=== PATIENT | female | born 1985 | race Caucasian/White ===

== ENCOUNTER 2017-01-19 13:30 | Observation (INO) | payer MEDICAID, SELFPAY ==
[2017-01-19 13:44] VITALS: BMI 23.2
[2017-01-19 13:50] VITALS: BP 123/72; PULSE 78; RESP 20; TEMP 36.6; O2SAT 98
--- NOTE | 2017-01-19 14:16 | NURSING ---
CINA ASSESSMENT COMPLETED. SEE CHART.
--- NOTE | 2017-01-19 14:16 | PCM.HP.STD ---
Problem List (1) Opioid abuse Status: Chronic (2) Opioid withdrawal Status: Acute (3) Cocaine abuse Status: Chronic (4) Tobacco dependence Status: Chronic (5) Marijuana abuse Status: Chronic History of Present Illness Date of Admission: 01/19/17 Chief Complaint: Heroin/cocaine withdrawal The patient is a 31 year old F who presented to [facility] through [facility] program due to IV heroin and cocaine inhalation use. She states she has been using heroin and cocaine consistently for the past 13 years. She last used IV heroin yesterday morning and smoked cocaine 2 days ago. She also admits to using marijuana on occasion. She is a current half pack per day smoker. Denies alcohol use. Denies other substance use. She completed a similar detox program about 1 year ago and states she had no outpatient follow-up and quickly relapsed. She states she has moved out of previous living environment where she was around other users. Currently lives with topher who she states is a non-user. She plans to use Vivitrol after discharge. She currently complains of abdominal cramping, tremors, generalized joint aching, nausea, fever/chills, palpitations and anxiety. Denies chest pain, shortness of breath. She states she has gone through detox in the past. Denies history of seizures. She denies any medical history. Denies current daily medication. 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 Alcohol: None Drugs: Cocaine, Heroin, Marijuana - *Family History Maternal History Items: - - Patient denies known maternal medical history. Paternal History Items: - - Patient denies known paternal medical history. Review of Systems Constitutional: Reports: Chills, Fever, Malaise HEENT: Reports: Head Aches Cardiovascular: Reports: Palpitations. Denies: Chest Pain Respiratory: Denies: Cough, Shortness of breath at rest, Sputum production Gastrointestinal: Reports: Nausea, - - Abdominal cramping Genitourinary: Denies: Dysuria Musculoskeletal: Reports: - - Generalized joint pain Neurological: Denies: Numbness, Tingling, Focal weakness Psychiatric: Denies: Anxiety, Depression, Homicidal Ideations, Suicidal Ideations Hematologic/ Lymphatic: Denies: Easy Bruising, Easy Bleeding VTE Information - Inpt Only VTE Present on Admission: No VTE Mechan Device Prophylaxis: None Patient Problems: Active and Suspected Problems Opioid withdrawal (Acute) - Physical Exam General: Alert, Oriented x3, Cooperative, No apparent distress HEENT: Atraumatic, PERRLA, EOMI, Normocephalic Neck: Supple, No JVD, Negative Carotid Bruits Lungs: Clear to auscultation, Normal air movement Cardiovascular: Regular rate, Regular Rhythm, Normal S1, Normal S2, No murmurs Abdomen: Bowel Sounds Present, Soft, Non-Distended, Tender - Generalized Extremities: No clubbing, No cyanosis, No edema, Capillary Refill Less than 3 Seconds Skin: No rashes, No breakdown, - - No skin abscesses noted. Patient has multiple scabbed areas to face. Musculoskeletal: No Tenderness to Palpation of Joints or Extremities Neurological: Cranial nerves II-XII grossly intact, Neuro grossly intact Psych/Mental Status: Flat Affect Vital Signs Temp Pulse Resp BP Pulse Ox 97.8 F 78 20 123/72 98 01/19/17 13:50 01/19/17 13:50 01/19/17 13:50 01/19/17 13:50 01/19/17 13:50 Oxygen Delivery Method Room Air Weight: 61.416 kg Body Mass Index (BMI) 23.2 Assessment/Plan Active and Suspected Problems Opioid withdrawal (Acute) 1. Multi-substance abuse/withdrawal-patient has a 13 year history of IV heroin, cocaine and marijuana use. Medical stabilization per protocol. She currently complains of abdominal cramping, tremors, generalized joint aching, nausea, fever/chills, palpitations and anxiety. Patient plans on receiving Vivitrol injections following discharge. She states she is not interested in inpatient treatment. She has failed similar detox programs in the past. 2. Tobacco dependence-encourage smoking cessation. Nicotine replacement patch. DVT prophylaxis: Not indicated due to low risk.
--- NOTE | 2017-01-19 14:30 | HP.PCM_ITS ---
Problem List (1) Opioid abuse Status: Chronic (2) Opioid withdrawal Status: Acute (3) Cocaine abuse Status: Chronic (4) Tobacco dependence Status: Chronic (5) Marijuana abuse Status: Chronic History of Present Illness Date of Admission: 01/19/17 Chief Complaint: Heroin/cocaine withdrawal The patient is a 31 year old F who presented to [facility] through [facility] program due to IV heroin and cocaine inhalation use. She states she has been using heroin and cocaine consistently for the past 13 years. She last used IV heroin yesterday morning and smoked cocaine 2 days ago. She also admits to using marijuana on occasion. She is a current half pack per day smoker. Denies alcohol use. Denies other substance use. She completed a similar detox program about 1 year ago and states she had no outpatient follow-up and quickly relapsed. She states she has moved out of previous living environment where she was around other users. Currently lives with topher who she states is a non-user. She plans to use Vivitrol after discharge. She currently complains of abdominal cramping, tremors, generalized joint aching, nausea, fever/chills, palpitations and anxiety. Denies chest pain , shortness of breath. She states she has gone through detox in the past. Denies history of seizures. She denies any medical history. Denies current daily medication. Past Medical History Past Medical History (Chronic Problems): Chronic Problems Cocaine abuse (Chronic) Marijuana abuse (Chronic) Opioid abuse (Chronic) Tobacco dependence (Chronic) Allergies No Known Allergies Allergy (Verified 01/19/17 13:50) Home Medications: Ambulatory Orders Medication Instructions Recorded No Known/Unobtainable [No Known 01/19/17 Home Medications] Surgical History: no surgical history Psychiatric History: No pertinent psych hx COOK RELIEF History: No pertinent COOK RELIEF history Smoking Status: Current every day smoker Tobacco Use: Cigarettes - Half pack per day. Alcohol: None Drugs: Cocaine, Heroin, Marijuana - *Family History Maternal History Items: - - Patient denies known maternal medical history. Paternal History Items: - - Patient denies known paternal medical history. Review of Systems Constitutional: Reports: Chills, Fever, Malaise HEENT: Reports: Head Aches Cardiovascular: Reports: Palpitations. Denies: Chest Pain Respiratory: Denies: Cough, Shortness of breath at rest, Sputum production Gastrointestinal: Reports: Nausea, - - Abdominal cramping Genitourinary: Denies: Dysuria Musculoskeletal: Reports: - - Generalized joint pain Neurological: Denies: Numbness, Tingling, Focal weakness Psychiatric: Denies: Anxiety, Depression, Homicidal Ideations, Suicidal Ideations Hematologic/ Lymphatic: Denies: Easy Bruising, Easy Bleeding VTE Information - Inpt Only VTE Present on Admission: No VTE Mechan Device Prophylaxis: None Patient Problems: Active and Suspected Problems Opioid withdrawal (Acute) - Physical Exam General: Alert, Oriented x3, Cooperative, No apparent distress HEENT: Atraumatic, PERRLA, EOMI, Normocephalic Neck: Supple, No JVD, Negative Carotid Bruits Lungs: Clear to auscultation, Normal air movement Cardiovascular: Regular rate, Regular Rhythm, Normal S1, Normal S2, No murmurs Abdomen: Bowel Sounds Present, Soft, Non-Distended, Tender - Generalized Extremities: No clubbing, No cyanosis, No edema, Capillary Refill Less than 3 Seconds Skin: No rashes, No breakdown, - - No skin abscesses noted. Patient has multiple scabbed areas to face. Musculoskeletal: No Tenderness to Palpation of Joints or Extremities Neurological: Cranial nerves II-XII grossly intact, Neuro grossly intact Psych/Mental Status: Flat Affect Vital Signs Temp Pulse Resp BP Pulse Ox 97.8 F 78 20 123/72 98 01/19/17 13:50 01/19/17 13:50 01/19/17 13:50 01/19/17 13:50 01/19/17 13:50 Oxygen Delivery Method Room Air Weight: 61.416 kg Body Mass Index (BMI) 23.2 Assessment/Plan Active and Suspected Problems Opioid withdrawal (Acute) 1. Multi-substance abuse/withdrawal-patient has a 13 year history of IV heroin , cocaine and marijuana use. Medical stabilization per protocol. She currently complains of abdominal cramping, tremors, generalized joint aching, nausea, fever/chills, palpitations and anxiety. Patient plans on receiving Vivitrol injections following discharge. She states she is not interested in inpatient treatment. She has failed similar detox programs in the past. 2. Tobacco dependence-encourage smoking cessation. Nicotine replacement patch. DVT prophylaxis: Not indicated due to low risk.
[2017-01-19] MEDS: Buprenorphine HCl 2 MG TAB.SUBL SL (15:54)
[2017-01-19] MEDS: cloNIDine HCl 0.1 MG Tablet 0.2 MG PO (15:55)
[2017-01-19] MEDS: Dicyclomine 10 MG Capsule 20 MG PO ×2 (15:55→22:37)
[2017-01-19] MEDS: Methocarbamol 750 MG Tablet PO (15:55)
[2017-01-19 18:09] VITALS: BP 84/39; PULSE 69; RESP 18; TEMP 36.7
[2017-01-19 22:00] VITALS: BP 107/65; PULSE 67; RESP 18; TEMP 36.4
[2017-01-19 22:20] VITALS: BP 107/65; PULSE 66; RESP 18; TEMP 35.6; O2SAT 97
[2017-01-19] MEDS: QUEtiapine 25 MG Tablet PO (22:36)
[2017-01-19] MEDS: cloNIDine HCl 0.1 MG Tablet PO (22:37)
[2017-01-19] MEDS: Carbidopa/Levodopa 25/100 Tablet PO (22:37)
[2017-01-20] VITALS (7 sets, daily range): BP systolic 93–106; BP diastolic 50–66; PULSE 58–86; RESP 16–18; TEMP 35.8–36.9; O2SAT 98–100
[2017-01-20] MEDS: Buprenorphine HCl 2 MG TAB.SUBL SL ×3 (01:10→15:17)
[2017-01-20] MEDS: Methocarbamol 750 MG Tablet PO ×4 (02:56→22:37)
[2017-01-20] MEDS: Dicyclomine 10 MG Capsule 20 MG PO ×3 (07:58→22:37)
[2017-01-20] MEDS: Carbidopa/Levodopa 25/100 Tablet PO ×2 (07:59→22:37)
[2017-01-20] MEDS: QUEtiapine 25 MG Tablet PO ×2 (07:59→15:17)
[2017-01-20 09:01] LABS: Absolute Lymphocyte Count 1.84 X10^3/ul (0.83-4.51); Absolute Neutrophil Count 3.3 X10^3/uL (2.0-7.7); Basophil# 0.02 X10^3/uL; Basophil% 0.4 % (0-1); Eosinophil# 0.14 X10^3/uL; Eosinophils% 2.5 % (0-5); Hematocrit 37.6 % (37-47); Hemoglobin 12.6 g/dl (12.0-15.0); Lymphocyte # 1.84 X10^3/ul (4.0); Mean Corp Hgb Conc 33.5 g/gl (32-36); Mean Corpuscular Hgb 29.1 pg (27.0-32.0); Mean Corpuscular Volume 86.8 fL (81-99); Mean Platelet Vol. 9.7 fl (6.2-12.0); Monocyte# 0.32 X10^3/uL; Monocyte% 5.7 % (0-10); Neutrophil # 3.25 X10^3/uL (2.7-7.7); Neutrophil % 58.2 % (47-70); Platelet Count 216 K/mm3 (150-450); RBC Distribution Width CV 14.1 % (11.6-14.6); Red Blood Count 4.33 M/mm3 (4.2-5.4); White Blood Count 5.6 K/mm3 (4.4-11.0)
[2017-01-20 09:02] LABS: POSITIVE COUNT NO; POSITIVE DIFFERENTIAL NO; POSITIVE MORPHOLOGY NO
[2017-01-20 09:06] LABS: Prothrombin Time (Protime)PT. 13.2 SECONDS (11.7-14.9)
[2017-01-20 09:15] LABS: ALB/GLOB Ratio 0.6 RATIO (0.9-2.4); AST(SGOT) 18 U/L (15-37); Alanine Aminotransfer ALT/SGPT 16 U/L (12-78); Alkaline Phosphatase 70 U/L (45-117); Amylase 25 U/L (25-115); Anion Gap 7 (5-15); BUN 8 mg/dL (7-18); BUN/Creat Ratio 12.9 RATIO (10-20); Chloride 109 mmol/L (98-107); Creatinine, Serum 0.62 mg/dL (0.55-1.02); EST Glomerular Filtration Rate 117 mL/min (>60); Est Glom Filt Rate - Afr Amer 142 mL/min (>60); Estimated Creatinine Clearance 111.45 ml/min; Globulin 5.1 g/dL (2.3-3.5); Glucose 107 mg/dL (70-110); Lipase 78 U/L (73-393); Potassium 3.5 mmol/L (3.5-5.1); Protein, Total 8.1 g/dL (6.4-8.2); Sodium Level 141 mmol/L (136-145)
[2017-01-20 09:21] LABS: Pregnancy, Serum, hCG Quali. NEGATIVE Negative (0-9 Nonpreg)
--- NOTE | 2017-01-20 09:28 | PCM.PROGNOTE ---
<Peace Vasquez - Last Filed: 01/20/17 09:42> Patient Problems: Active and Suspected Problems Opioid withdrawal (Acute) Subjective: Patient is a 31-year-old female admitted 01/19/2017 due to heroin/cocaine withdrawal. She has a past medical history of cocaine abuse, marijuana abuse, opioid abuse, and tobacco dependence. No other previous medical history noted. Patient seen and examined. She is awake and alert, sitting up in bed. She states she feels well. Denies further abdominal cramping, nausea, joint aching, fever/chills. She denies shortness of breath, chest pain. She has been able to eat and drink without difficulty. She denies further complaints at this time. - Physical Exam General: Alert, Oriented x3, Cooperative HEENT: Atraumatic, PERRLA, EOMI, Normocephalic Neck: Supple, No JVD, Negative Carotid Bruits Lungs: Clear to auscultation, Normal air movement Cardiovascular: Regular rate, No murmurs Abdomen: Bowel Sounds Present, Soft, Non Tender Extremities: No edema, Capillary Refill Less than 3 Seconds Skin: - - Multiple scabbed areas to face and bilateral arms. No signs of infection. Musculoskeletal: No Tenderness to Palpation of Joints or Extremities Neurological: Cranial nerves II-XII grossly intact Psych/Mental Status: Normal Affect, Appropriate Vital Signs Temp Pulse Resp BP Pulse Ox 96.8 F 58 16 106/58 98 01/20/17 07:57 01/20/17 08:06 01/20/17 07:57 01/20/17 07:57 01/20/17 06:30 Oxygen Delivery Method Room Air Weight: 61.416 kg Body Mass Index (BMI) 23.2 Laboratory Tests Past 24 Hrs 01/20/17 01/20/17 01/20/17 08:45 08:45 08:45 WBC 5.6 RBC 4.33 Hgb 12.6 Hct 37.6 MCV 86.8 MCH 29.1 MCHC 33.5 RDW 14.1 RDW Differential 44.0 H Plt Count 216 MPV 9.7 Immature Gran % (Auto) 0.200 Neut % (Auto) 58.2 Lymph % (Auto) 33.0 [place] % (Auto) 5.7 Eos % (Auto) 2.5 Baso % (Auto) 0.4 Absolute Neuts (auto) 3.3 Absolute Lymphs (auto) 1.84 Total Counted Not Reportable PT 13.2 INR 1.0 Sodium 141 Potassium 3.5 Chloride 109 H Carbon Dioxide 25.0 Anion Gap 7 BUN 8 Creatinine 0.62 Estim Creat Clear Calc 111.45 Est GFR (MDRD) Af Amer 142 Est GFR (MDRD) Non-Af 117 BUN/Creatinine Ratio 12.9 Glucose 107 Calcium 9.0 Total Bilirubin 0.40 AST 18 ALT 16 Alkaline Phosphatase 70 Total Protein 8.1 Albumin 3.0 L Globulin 5.1 H Albumin/Globulin Ratio 0.6 L Amylase 25 Lipase 78 Serum , Qual 01/20/17 08:45 WBC RBC Hgb Hct MCV MCH MCHC RDW RDW Differential Plt Count MPV Immature Gran % (Auto) Neut % (Auto) Lymph % (Auto) [place] % (Auto) Eos % (Auto) Baso % (Auto) Absolute Neuts (auto) Absolute Lymphs (auto) Total Counted PT INR Sodium Potassium Chloride Carbon Dioxide Anion Gap BUN Creatinine Estim Creat Clear Calc Est GFR (MDRD) Af Amer Est GFR (MDRD) Non-Af BUN/Creatinine Ratio Glucose Calcium Total Bilirubin AST ALT Alkaline Phosphatase Total Protein Albumin Globulin Albumin/Globulin Ratio Amylase Lipase Serum , Qual NEGATIVE Assessment/Plan Active and Suspected Problems Opioid withdrawal (Acute) 1. Multi-substance abuse/withdrawal-patient has a 13 year history of IV heroin, cocaine and marijuana use. Medical stabilization per protocol. She denies further withdrawal symptoms at this time. States she is feeling well. Vitals stable. Patient plans on receiving Vivitrol injections following discharge. She states she is not interested in inpatient treatment. She has failed similar detox programs in the past. Lab work unremarkable. Urine tox screen pending. 2. Tobacco dependence-encourage smoking cessation. Nicotine replacement patch. DVT prophylaxis: Not indicated due to low risk. <Maru Cancino E - Last Filed: 01/20/17 12:48> - Physical Exam Cardiovascular: Regular Rhythm, Normal S1, Normal S2 Abdomen: Non-Distended, No Hepato-splenomegaly Extremities: No clubbing, No cyanosis Neurological: Motor Exam 5/5 strength throughout Vital Signs Temp Pulse Resp BP Pulse Ox 96.8 F 58 16 106/58 98 01/20/17 07:57 01/20/17 08:06 01/20/17 07:57 01/20/17 07:57 01/20/17 06:30 Oxygen Delivery Method Room Air Weight: 135 lb 5.821 oz Body Mass Index (BMI) 23.2 Laboratory Tests Past 24 Hrs 01/20/17 01/20/17 01/20/17 08:45 08:45 08:45 WBC 5.6 RBC 4.33 Hgb 12.6 Hct 37.6 MCV 86.8 MCH 29.1 MCHC 33.5 RDW 14.1 RDW Differential 44.0 H Plt Count 216 MPV 9.7 Immature Gran % (Auto) 0.200 Neut % (Auto) 58.2 Lymph % (Auto) 33.0 [place] % (Auto) 5.7 Eos % (Auto) 2.5 Baso % (Auto) 0.4 Absolute Neuts (auto) 3.3 Absolute Lymphs (auto) 1.84 Total Counted Not Reportable PT 13.2 INR 1.0 Sodium 141 Potassium 3.5 Chloride 109 H Carbon Dioxide 25.0 Anion Gap 7 BUN 8 Creatinine 0.62 Estim Creat Clear Calc 111.45 Est GFR (MDRD) Af Amer 142 Est GFR (MDRD) Non-Af 117 BUN/Creatinine Ratio 12.9 Glucose 107 Calcium 9.0 Total Bilirubin 0.40 AST 18 ALT 16 Alkaline Phosphatase 70 Total Protein 8.1 Albumin 3.0 L Globulin 5.1 H Albumin/Globulin Ratio 0.6 L Amylase 25 Lipase 78 Serum , Qual 01/20/17 08:45 WBC RBC Hgb Hct MCV MCH MCHC RDW RDW Differential Plt Count MPV Immature Gran % (Auto) Neut % (Auto) Lymph % (Auto) [place] % (Auto) Eos % (Auto) Baso % (Auto) Absolute Neuts (auto) Absolute Lymphs (auto) Total Counted PT INR Sodium Potassium Chloride Carbon Dioxide Anion Gap BUN Creatinine Estim Creat Clear Calc Est GFR (MDRD) Af Amer Est GFR (MDRD) Non-Af BUN/Creatinine Ratio Glucose Calcium Total Bilirubin AST ALT Alkaline Phosphatase Total Protein Albumin Globulin Albumin/Globulin Ratio Amylase Lipase Serum , Qual NEGATIVE Assessment/Plan Hospitalist note: I am seeing this patient in conjunction with Peace Vasquez. I independently seen and examined the patient. History and physical, progress note and laboratory data reviewed. I agree with above treatment plan. Today, patient seen and examined. She reported significant improvement of her symptoms. She has no more abdominal pain, still having some nausea but no vomiting. Body aches and pains improved. Vital signs are stable. - Physical Exam General: Alert, Oriented x3, Cooperative, No apparent distress. HEENT: Atraumatic, PERRLA, EOMI. Neck: Supple, No JVD, Negative Carotid Bruits, Trachea Midline, Thyroid Normal. Lungs: Clear to auscultation, Normal air movement, No rhonchi, No wheeze, No rales. Cardiovascular: Regular rate, Regular Rhythm, Normal S1, Normal S2, PMI Normal. Abdomen: Bowel Sounds Present, Soft, Non Tender, Non-Distended, No Hepato-splenomegaly. Extremities: No clubbing, No cyanosis, No edema Skin: No rashes, No breakdown Neurological: Neuro grossly intact Vital Signs stable. Assessment and plan: Patient was admitted for medical stabilization for opioid withdrawal in context of history of multi-substance abuse. She is on [facility] protocol with tapering course of Subutex. Vital signs are stable. Routine blood work was unremarkable. LFT and lipase were normal. Serum 's was negative. Plan to continue current treatment as per protocol.
--- NOTE | 2017-01-20 09:41 | PN_ITS ---
<Peace Vasquez - Last Filed: 01/20/17 09:42> Patient Problems: Active and Suspected Problems Opioid withdrawal (Acute) Subjective: Patient is a 31-year-old female admitted 01/19/2017 due to heroin/cocaine withdrawal. She has a past medical history of cocaine abuse, marijuana abuse, opioid abuse, and tobacco dependence. No other previous medical history noted. Patient seen and examined. She is awake and alert, sitting up in bed. She states she feels well. Denies further abdominal cramping, nausea, joint aching , fever/chills. She denies shortness of breath, chest pain. She has been able to eat and drink without difficulty. She denies further complaints at this time. - Physical Exam General: Alert, Oriented x3, Cooperative HEENT: Atraumatic, PERRLA, EOMI, Normocephalic Neck: Supple, No JVD, Negative Carotid Bruits Lungs: Clear to auscultation, Normal air movement Cardiovascular: Regular rate, No murmurs Abdomen: Bowel Sounds Present, Soft, Non Tender Extremities: No edema, Capillary Refill Less than 3 Seconds Skin: - - Multiple scabbed areas to face and bilateral arms. No signs of infection. Musculoskeletal: No Tenderness to Palpation of Joints or Extremities Neurological: Cranial nerves II-XII grossly intact Psych/Mental Status: Normal Affect, Appropriate Vital Signs Temp Pulse Resp BP Pulse Ox 96.8 F 58 16 106/58 98 01/20/17 07:57 01/20/17 08:06 01/20/17 07:57 01/20/17 07:57 01/20/17 06:30 Oxygen Delivery Method Room Air Weight: 61.416 kg Body Mass Index (BMI) 23.2 Laboratory Tests Past 24 Hrs 01/20/17 01/20/17 01/20/17 08:45 08:45 08:45 WBC 5.6 RBC 4.33 Hgb 12.6 Hct 37.6 MCV 86.8 MCH 29.1 MCHC 33.5 RDW 14.1 RDW Differential 44.0 H Plt Count 216 MPV 9.7 Immature Gran % (Auto) 0.200 Neut % (Auto) 58.2 Lymph % (Auto) 33.0 [place] % (Auto) 5.7 Eos % (Auto) 2.5 Baso % (Auto) 0.4 Absolute Neuts (auto) 3.3 Absolute Lymphs (auto) 1.84 Total Counted Not Reportable PT 13.2 INR 1.0 Sodium 141 Potassium 3.5 Chloride 109 H Carbon Dioxide 25.0 Anion Gap 7 BUN 8 Creatinine 0.62 Estim Creat Clear Calc 111.45 Est GFR (MDRD) Af Amer 142 Est GFR (MDRD) Non-Af 117 BUN/Creatinine Ratio 12.9 Glucose 107 Calcium 9.0 Total Bilirubin 0.40 AST 18 ALT 16 Alkaline Phosphatase 70 Total Protein 8.1 Albumin 3.0 L Globulin 5.1 H Albumin/Globulin Ratio 0.6 L Amylase 25 Lipase 78 Serum , Qual 01/20/17 08:45 WBC RBC Hgb Hct MCV MCH MCHC RDW RDW Differential Plt Count MPV Immature Gran % (Auto) Neut % (Auto) Lymph % (Auto) [place] % (Auto) Eos % (Auto) Baso % (Auto) Absolute Neuts (auto) Absolute Lymphs (auto) Total Counted PT INR Sodium Potassium Chloride Carbon Dioxide Anion Gap BUN Creatinine Estim Creat Clear Calc Est GFR (MDRD) Af Amer Est GFR (MDRD) Non-Af BUN/Creatinine Ratio Glucose Calcium Total Bilirubin AST ALT Alkaline Phosphatase Total Protein Albumin Globulin Albumin/Globulin Ratio Amylase Lipase Serum , Qual NEGATIVE Assessment/Plan Active and Suspected Problems Opioid withdrawal (Acute) 1. Multi-substance abuse/withdrawal-patient has a 13 year history of IV heroin , cocaine and marijuana use. Medical stabilization per protocol. She denies further withdrawal symptoms at this time. States she is feeling well. Vitals stable. Patient plans on receiving Vivitrol injections following discharge. She states she is not interested in inpatient treatment. She has failed similar detox programs in the past. Lab work unremarkable. Urine tox screen pending. 2. Tobacco dependence-encourage smoking cessation. Nicotine replacement patch. DVT prophylaxis: Not indicated due to low risk. <Maru Cancino E - Last Filed: 01/20/17 12:48> - Physical Exam Cardiovascular: Regular Rhythm, Normal S1, Normal S2 Abdomen: Non-Distended, No Hepato-splenomegaly Extremities: No clubbing, No cyanosis Neurological: Motor Exam 5/5 strength throughout Vital Signs Temp Pulse Resp BP Pulse Ox 96.8 F 58 16 106/58 98 01/20/17 07:57 01/20/17 08:06 01/20/17 07:57 01/20/17 07:57 01/20/17 06:30 Oxygen Delivery Method Room Air Weight: 135 lb 5.821 oz Body Mass Index (BMI) 23.2 Laboratory Tests Past 24 Hrs 01/20/17 01/20/17 01/20/17 08:45 08:45 08:45 WBC 5.6 RBC 4.33 Hgb 12.6 Hct 37.6 MCV 86.8 MCH 29.1 MCHC 33.5 RDW 14.1 RDW Differential 44.0 H Plt Count 216 MPV 9.7 Immature Gran % (Auto) 0.200 Neut % (Auto) 58.2 Lymph % (Auto) 33.0 [place] % (Auto) 5.7 Eos % (Auto) 2.5 Baso % (Auto) 0.4 Absolute Neuts (auto) 3.3 Absolute Lymphs (auto) 1.84 Total Counted Not Reportable PT 13.2 INR 1.0 Sodium 141 Potassium 3.5 Chloride 109 H Carbon Dioxide 25.0 Anion Gap 7 BUN 8 Creatinine 0.62 Estim Creat Clear Calc 111.45 Est GFR (MDRD) Af Amer 142 Est GFR (MDRD) Non-Af 117 BUN/Creatinine Ratio 12.9 Glucose 107 Calcium 9.0 Total Bilirubin 0.40 AST 18 ALT 16 Alkaline Phosphatase 70 Total Protein 8.1 Albumin 3.0 L Globulin 5.1 H Albumin/Globulin Ratio 0.6 L Amylase 25 Lipase 78 Serum , Qual 01/20/17 08:45 WBC RBC Hgb Hct MCV MCH MCHC RDW RDW Differential Plt Count MPV Immature Gran % (Auto) Neut % (Auto) Lymph % (Auto) [place] % (Auto) Eos % (Auto) Baso % (Auto) Absolute Neuts (auto) Absolute Lymphs (auto) Total Counted PT INR Sodium Potassium Chloride Carbon Dioxide Anion Gap BUN Creatinine Estim Creat Clear Calc Est GFR (MDRD) Af Amer Est GFR (MDRD) Non-Af BUN/Creatinine Ratio Glucose Calcium Total Bilirubin AST ALT Alkaline Phosphatase Total Protein Albumin Globulin Albumin/Globulin Ratio Amylase Lipase Serum , Qual NEGATIVE Assessment/Plan Hospitalist note: I am seeing this patient in conjunction with Peace Vasquez. I independently seen and examined the patient. History and physical, progress note and laboratory data reviewed. I agree with above treatment plan. Today, patient seen and examined. She reported significant improvement of her symptoms. She has no more abdominal pain, still having some nausea but no vomiting. Body aches and pains improved. Vital signs are stable. - Physical Exam General: Alert, Oriented x3, Cooperative, No apparent distress. HEENT: Atraumatic, PERRLA, EOMI. Neck: Supple, No JVD, Negative Carotid Bruits, Trachea Midline, Thyroid Normal. Lungs: Clear to auscultation, Normal air movement, No rhonchi, No wheeze, No rales. Cardiovascular: Regular rate, Regular Rhythm, Normal S1, Normal S2, PMI Normal. Abdomen: Bowel Sounds Present, Soft, Non Tender, Non-Distended, No Hepato- splenomegaly. Extremities: No clubbing, No cyanosis, No edema Skin: No rashes, No breakdown Neurological: Neuro grossly intact Vital Signs stable. Assessment and plan: Patient was admitted for medical stabilization for opioid withdrawal in context of history of multi-substance abuse. She is on [facility] protocol with tapering course of Subutex. Vital signs are stable. Routine blood work was unremarkable. LFT and lipase were normal. Serum 's was negative. Plan to continue current treatment as per protocol.
[2017-01-20] MEDS: chlordiazePOXIDE 25 MG Capsule PO ×2 (12:59→22:37)
[2017-01-20 15:31] LABS: Bacteria 0 SEEN /hpf (None Seen); Red Blood Cells-Urine 0 SEEN /hpf (0-5)
[2017-01-20 16:05] LABS: Amphetamine Urine VISTA NEGATIVE (<1000 ng/mL); Barbiturate Urine VISTA NEGATIVE (< 200 ng/mL); Benzodiazepine Urine VISTA NEGATIVE (< 200 ng/mL); Cocaine Urine VISTA POSITIVE (< 300 ng/mL); Ecstacy Urine VISTA NEGATIVE (< 500 ng/mL); Methadone Urine VISTA NEGATIVE (< 300 ng/mL); PCP Urine VISTA NEGATIVE (< 25 ng/mL); THC Urine VISTA POSITIVE (< 50 ng/mL); Vista UDS pH Range 7
[2017-01-20 16:07] LABS: Color, Urine Yellow (Yellow); Glucose, Dipstick Normal (Normal); Ketone-Dipstick 5 mg/dl (Negative); Leukocyte Esterase-Dipstick 25 /ul (Negative); Nitrite-Dipstick Negative (Negative); Occult Blood-Urine Negative /ul (Negative); Protein-Dipstick 30 mg/dl (Negative); Urine Bilirubin Dipstick Negative (Negative); Urine Clarity Clear (Clear); Urine Urobilinogen 4 mg/dl (Normal)
--- NOTE | 2017-01-20 16:10 | CHAPLAIN ---
patient ended phone call to talk to me; pt at first thought I was a doctor and asked about swelling in her hands; pt is asked about her story and she gives quick summary of her life as addict due to being a coping mechanism for what happened to me; pt said she was clean for 4 months and then reacted to something her mother said to her and started using again; pt overdosed and was found by boyfriend who did not know she was using again; pt has children that live with her parents but which she sees almost daily; pt has many spiritual questions and shares her background from a strict protestant and possibly cultic environment; pt says she believes in God but rejects the anabaptism of her parents; pt wants to find answers to her questions; listening and providing some insights for pt takes place [facility] staff member comes into room and gives updates on the next steps for pt; pt welcomes prayer and future visits
[2017-01-20 16:25] LABS: Mucous, Urine 4+ /hpf (<or=2+); Squamous Epithelial Cells - UA 0-5 SEEN /hpf (5-10); White Blood Cells 0-5 SEEN /hpf (0-5)
[2017-01-20] MEDS: cloNIDine HCl 0.1 MG Tablet PO (22:37)
[2017-01-21] MEDS: Buprenorphine HCl 2 MG TAB.SUBL SL ×3 (00:36→21:27)
[2017-01-21 06:00] VITALS: BP 89/56; PULSE 64; RESP 16; TEMP 36.4
[2017-01-21] MEDS: Methocarbamol 750 MG Tablet PO ×3 (08:04→21:46)
[2017-01-21] MEDS: Dicyclomine 10 MG Capsule 20 MG PO ×2 (08:04→21:46)
[2017-01-21] MEDS: Carbidopa/Levodopa 25/100 Tablet PO ×2 (08:04→21:46)
[2017-01-21 08:07] VITALS: BP 96/60; PULSE 62; RESP 18; TEMP 36.6
--- NOTE | 2017-01-21 09:11 | PN_ITS ---
<Peace Vasquez - Last Filed: 01/21/17 09:11> Patient Problems: Active and Suspected Problems Opioid withdrawal (Acute) Subjective: Patient is a 31-year-old female admitted 01/19/2017 due to heroin/cocaine withdrawal. She has a past medical history of cocaine abuse, marijuana abuse, opioid abuse, and tobacco dependence. No other previous medical history noted. Patient seen and examined. She is calm and pleasant. States she is feeling well. Denies further abdominal cramping, nausea, joint aching, fever/chills. She denies shortness of breath, chest pain. She denies questions or concerns. Discussed discharge tomorrow and patient states she set up Vivitrol injections. Denies further complaints at this time. - Physical Exam General: Alert, Oriented x3, Cooperative HEENT: Atraumatic, PERRLA, EOMI, Normocephalic Neck: Supple, No JVD, Negative Carotid Bruits Lungs: Clear to auscultation, Normal air movement Cardiovascular: Regular rate, Regular Rhythm, Normal S1, Normal S2, No murmurs Abdomen: Bowel Sounds Present, Soft, Non Tender, Non-Distended Extremities: No clubbing, No cyanosis, No edema, Capillary Refill Less than 3 Seconds Skin: No rashes, No breakdown, - - Scattered scabbed areas on face and bilateral arms. No signs of infection. Musculoskeletal: No Tenderness to Palpation of Joints or Extremities Neurological: Cranial nerves II-XII grossly intact, Neuro grossly intact Psych/Mental Status: Normal Affect, Appropriate Vital Signs Temp Pulse Resp BP Pulse Ox 97.8 F 62 18 96/60 98 01/21/17 08:07 01/21/17 08:07 01/21/17 08:07 01/21/17 08:07 01/20/17 06:30 Oxygen Delivery Method Room Air Weight: 61.4 kg Body Mass Index (BMI) 23.2 Intake and Output for Last 24 Hours 01/19/17 01/20/17 01/21/17 23:59 23:59 23:59 Intake Total 300 Balance 300 Laboratory Tests Past 24 Hrs 01/20/17 01/20/17 01/20/17 08:45 08:45 08:45 PT 13.2 INR 1.0 Sodium 141 Potassium 3.5 Chloride 109 H Carbon Dioxide 25.0 Anion Gap 7 BUN 8 Creatinine 0.62 Estim Creat Clear Calc 111.45 Est GFR (MDRD) Af Amer 142 Est GFR (MDRD) Non-Af 117 BUN/Creatinine Ratio 12.9 Glucose 107 Calcium 9.0 Total Bilirubin 0.40 AST 18 ALT 16 Alkaline Phosphatase 70 Total Protein 8.1 Albumin 3.0 L Globulin 5.1 H Albumin/Globulin Ratio 0.6 L Amylase 25 Lipase 78 Serum , Qual NEGATIVE Urine Color Urine Clarity Urine pH Ur Specific [place] Urine Protein Urine Glucose (UA) Urine Ketones Urine Occult Blood Urine Nitrite Urine Bilirubin Urine Urobilinogen Ur Leukocyte Esterase Urine RBC Urine WBC Ur Squamous Epith Cells Urine Bacteria Urine Mucus Urine Opiates Screen Urine Methadone Screen Ur Barbiturates Screen Ur Phencyclidine Scrn Ur Amphetamines Screen U Methamphetamin-MDMA U Benzodiazepines Scrn Urine Cocaine Screen U Cannabinoids Screen Ur Drug Screen Comment 01/20/17 01/20/17 15:20 15:20 PT INR Sodium Potassium Chloride Carbon Dioxide Anion Gap BUN Creatinine Estim Creat Clear Calc Est GFR (MDRD) Af Amer Est GFR (MDRD) Non-Af BUN/Creatinine Ratio Glucose Calcium Total Bilirubin AST ALT Alkaline Phosphatase Total Protein Albumin Globulin Albumin/Globulin Ratio Amylase Lipase Serum , Qual Urine Color Yellow Urine Clarity Clear Urine pH 7.0 Ur Specific [place] 1.010 Urine Protein 30 H Urine Glucose (UA) Normal Urine Ketones 5 H Urine Occult Blood Negative Urine Nitrite Negative Urine Bilirubin Negative Urine Urobilinogen 4 H Ur Leukocyte Esterase 25 H Urine RBC 0 SEEN Urine WBC 0-5 SEEN Ur Squamous Epith Cells 0-5 SEEN Urine Bacteria 0 SEEN Urine Mucus 4+ Urine Opiates Screen POSITIVE H Urine Methadone Screen NEGATIVE Ur Barbiturates Screen NEGATIVE Ur Phencyclidine Scrn NEGATIVE Ur Amphetamines Screen NEGATIVE U Methamphetamin-MDMA NEGATIVE U Benzodiazepines Scrn NEGATIVE Urine Cocaine Screen POSITIVE H U Cannabinoids Screen POSITIVE H Ur Drug Screen Comment Assessment/Plan Active and Suspected Problems Opioid withdrawal (Acute) 1. Multi-substance abuse/withdrawal-patient has a 13 year history of IV heroin , cocaine and marijuana use. Medical stabilization per protocol. She denies further withdrawal symptoms at this time. States she is feeling well. Vitals stable. Patient plans on receiving Vivitrol injections following discharge. She states she is not interested in inpatient treatment. She has failed similar detox programs in the past. Lab work unremarkable. Urine tox screen positive for opiates, cocaine, and cannabinoids. 2. Tobacco dependence-encourage smoking cessation. Nicotine replacement patch. DVT prophylaxis: Not indicated due to low risk. Discharge planning: Plan is for patient to be discharged tomorrow. She states she has already set up Vivitrol injection. <Maru Cancino E - Last Filed: 01/21/17 11:04> - Physical Exam Vital Signs Temp Pulse Resp BP Pulse Ox 97.8 F 62 18 96/60 98 01/21/17 08:07 01/21/17 08:07 01/21/17 08:07 01/21/17 08:07 01/20/17 06:30 Oxygen Delivery Method Room Air Weight: 135 lb 5.821 oz Body Mass Index (BMI) 23.2 Intake and Output for Last 24 Hours 01/19/17 01/20/17 01/21/17 23:59 23:59 23:59 Intake Total 300 Balance 300 Laboratory Tests Past 24 Hrs 01/20/17 01/20/17 15:20 15:20 Urine Color Yellow Urine Clarity Clear Urine pH 7.0 Ur Specific [place] 1.010 Urine Protein 30 H Urine Glucose (UA) Normal Urine Ketones 5 H Urine Occult Blood Negative Urine Nitrite Negative Urine Bilirubin Negative Urine Urobilinogen 4 H Ur Leukocyte Esterase 25 H Urine RBC 0 SEEN Urine WBC 0-5 SEEN Ur Squamous Epith Cells 0-5 SEEN Urine Bacteria 0 SEEN Urine Mucus 4+ Urine Opiates Screen POSITIVE H Urine Methadone Screen NEGATIVE Ur Barbiturates Screen NEGATIVE Ur Phencyclidine Scrn NEGATIVE Ur Amphetamines Screen NEGATIVE U Methamphetamin-MDMA NEGATIVE U Benzodiazepines Scrn NEGATIVE Urine Cocaine Screen POSITIVE H U Cannabinoids Screen POSITIVE H Ur Drug Screen Comment Assessment/Plan Hospitalist note: I am seeing this patient in conjunction with Peace Vasquez. I independently seen and examined the patient. Progress note above reviewed and I agree with above treatment plan. Patient seen and examined, reported significant improvement of her symptoms. Vital signs are stable. Plan to continue same treatment, anticipate discharge home tomorrow and follow-up with [facility]. ,
[2017-01-21 13:20] VITALS: BP 106/61; PULSE 67; RESP 18; TEMP 36.3
[2017-01-21] MEDS: Naproxen 250 MG Tablet 500 MG PO (13:25)
[2017-01-21] MEDS: QUEtiapine 25 MG Tablet PO (13:25)
[2017-01-21] MEDS: Miconazole-7 Nitrate Cream 1 APPLIC VAGINAL (21:45)
[2017-01-21] MEDS: chlordiazePOXIDE 25 MG Capsule PO (21:46)
[2017-01-21] MEDS: cloNIDine HCl 0.1 MG Tablet PO (21:46)
[2017-01-21 22:00] VITALS: BP 111/76; PULSE 73; RESP 16; TEMP 36.8
[2017-01-22 06:00] VITALS: BP 104/69; PULSE 62; RESP 18; TEMP 36.3
[2017-01-22] MEDS: chlordiazePOXIDE 25 MG Capsule PO (06:11)
--- NOTE | 2017-01-22 08:55 | NURSING ---
PT. REQUESTS TAKING 8 AM MEDICATION AFTER SHE EATS HER BREAKFAST.
--- NOTE | 2017-01-22 09:06 | PCM.DC ---
- Discharge Diagnoses Current Active Problems: Current Active and Chronic Problems Opioid withdrawal (Acute) Cocaine abuse (Chronic) Marijuana abuse (Chronic) Opioid abuse (Chronic) Tobacco dependence (Chronic) You will use the following diet at home:: No restrictions Discharge Activity: Return to Normal Activity, - - no Drug Use, reduce nicotine dependence Allergies/Adverse Reactions: Allergies No Known Allergies Allergy (Verified 01/19/17 13:50) Medications to take at Discharge Fluconazole 100 mg PO X1 #3 tablet 01/22/17 The following prescriptions were given: Fluconazole 100 mg PO X1 #3 tablet Primary Care Physician: Care Physician,No Primary [Primary Care Provider] - Please follow up with your Primary Care Physician in: 1-2 weeks Proposed Discharge Date: 01/22/17
[2017-01-22 09:07] VITALS: BP 108/65; PULSE 67; RESP 16; TEMP 36.3; O2SAT 100
--- NOTE | 2017-01-22 09:08 | PCM.DC.SUM ---
<Tee Bailey - Last Filed: 01/22/17 09:08> Discharge Date and Diagnosis Date of Admission: 01/19/17 - Primary Discharge Diagnosis Active and Suspected Problems Opioid withdrawal (Acute) Cocaine abuse Marijuana abuse Nicotine abuse Self induced skin wounds - Secondary Discharge Diagnosis Chronic Problems Cocaine abuse (Chronic) Marijuana abuse (Chronic) Opioid abuse (Chronic) Tobacco dependence (Chronic) Hospital Course and Treatment Imaging Results: NA Operations: None Procedures: None Summary of Care Provided: Exam on day of discharge: General: Resting comfortably NAD Psych: A/Ox3 normal affect HEENT: PEARRLA AT VT Neck: Supple NT CV: RRR no m/t/r/g/h Resp: CTA Abd: [id number] Soft NT no guarding or rigidity Ext: DP2+= no edema Skin: Multiple scabbed areas over bilateral upper extremities. Inspected injection sites, no tenderness, erythema, swelling, discharge. Area of prior abscess inspected and appears to be healing well. Scarring and scabbing present. Lymph/Heme: No active bleeding or adenopathy Neuro: CN2-12 intact Hospital course: The patient is a 31 year old F who was admitted to the general medical floor for opiate and cocaine withdrawal. She also has a history of marijuana nicotine abuse. Patient was put into the [facility]. She also has multiple skin wounds from picking while high. Patient does have an area of healing abscess. She was treated with multiple I&D's for this in the past and does appear to be healing. She successfully completed the [facility] program. She will begin Vivitrol injections on Thursday. Patient's symptoms were controlled with protocol medications. She remained clinically stable at the time of discharge. She was placed on Diflucan for 3 doses for recurrent Smiley vaginitis. She was discharged medically stable. [] Discharge Diet: No Restrictions Discharge Activity: Return to Normal Activity, - - no Drug Use, reduce nicotine dependence Home Medications: Medications to take at Discharge Fluconazole 100 mg PO X1 #3 tablet 01/22/17 Following Prescrptions Were Given to Patient: Fluconazole 100 mg PO X1 #3 tablet Primary Care Physician: Care Physician,No Primary [Primary Care Provider] - Please follow up with your Primary Care Physician in: 1-2 weeks Disposition: Home Minutes spent on discharge:: 35 Patient Condition:: Stable Meaningful Use Info Meaningful Use Diagnoses (Choose all that apply): None applicable <Deven Cancinodevika E - Last Filed: 01/22/17 14:26> Discharge Date and Diagnosis - Secondary Discharge Diagnosis Chronic Problems Cocaine abuse (Chronic) Marijuana abuse (Chronic) Opioid abuse (Chronic) Tobacco dependence (Chronic) Hospital Course and Treatment Summary of Care Provided: Hospitalist note: I am seeing this patient in conjunction with Tee Bailey. I independently seen and examined the patient on day of discharge. Discharge summary above and physical examination reviewed and I agree with the above findings and treatment plan. Patient was admitted for opioid withdrawal for medical stabilization through [facility]. Patient did very well. Vital signs remained stable throughout admission. Routine blood work was unremarkable. Patient discharged home in a stable medical condition, plan to follow-up with [facility]. . Minutes spent on discharge:: 24
[2017-01-22 09:25] VITALS: RESP 16
[2017-01-22] MEDS: cloNIDine HCl 0.1 MG Tablet PO (09:30)
[2017-01-22] MEDS: Buprenorphine HCl 2 MG TAB.SUBL SL (09:30)
[2017-01-22] MEDS: Methocarbamol 750 MG Tablet PO (09:30)
== END 2017-01-22 10:40 | disposition home or self-care (01) | DRG 773 ==
LOC: MS2 09-07 07:48
PROVIDERS: Nurse Practitioner Family; Admitting Provider Internal Medicine; Visit Provider Hospitalist
DX: F11.23 Opioid dependence with withdrawal (principal); F17.210 Nicotine dependence, cigarettes, uncomplicated; F12.10 Cannabis abuse, uncomplicated; F14.10 Cocaine abuse, uncomplicated; S41.102A Unspecified open wound of left upper arm, initial encounter; S41.101A Unspecified open wound of right upper arm, initial encounter; X58.XXXA Exposure to other specified factors, initial encounter; Y93.89 Activity, other specified
CPT/HCPCS: 80053; 80307; 81001; 82150; 83690; 84703; 85025; 85610; 97802; 99218; G0378; G0379

== ENCOUNTER 2018-05-26 13:40 | Observation (INO) | payer MEDICAID, SELFPAY ==
[2018-05-26 13:57] VITALS: BP 124/75; PULSE 89; RESP 18; TEMP 36.3; O2SAT 99
[2018-05-26 14:01] VITALS: BMI 29.1
--- NOTE | 2018-05-26 14:01 | PCM.HP.STD ---
Problem List (1) Tobacco dependence Status: Chronic (2) Opioid withdrawal Status: Acute (3) Abscess Status: Acute (4) Cellulitis Status: Acute Qualifiers: Site of cellulitis: extremity Laterality: unspecified laterality History of Present Illness Date of Admission: 05/26/18 Chief Complaint: Acute opioid withdrawal The patient is a 32 year old F with past medical history of substance abuse, anxiety, nicotine dependence comes in with complaints of acute opioid withdrawal. Patient admits to use of heroin, last used heroin a day before admission, about 3 g. She wants to come clean. She complains of severe nausea with hot and cold flashes and nasal congestion. She has 2 previous episodes of blackouts secondary to overdosing. Denies any fever or chills apart from the hot and cold flashes. Denies any chest pain or dizziness or palpitations. Vitals on admission showed a pressure of 90 7.4F, heart rate 89, blood pressure 124/75, respiratory rate 18, saturating 99% on room air. Admitting blood work is pending She has multiple erythematous skin lesion which she attributes it to picking her skin from anxiety. She also has multiple abscesses of the lower extremities from injecting heroin. 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 Paternal History Items: - - Patient denies known paternal medical history. Review of Systems Constitutional: Reports: Anorexia, Weakness. Denies: Chills, Fever, Night Sweats, Weight Change Eyes: Denies: Blurred vision, Cataracts, Conjunctivae Inflammation, Vision Change HEENT: Reports: Nasal Congestion. Denies: Difficulty Swallowing, Head Aches, Hearing Changes, Nasal bleeding, Sinus Congestion, Sinus Drainage Cardiovascular: Denies: Chest Pain, Claudication, Chest Pressure, Chest Tightness, Orthopnea, Palpitations Respiratory: Denies: Cough, Hemoptysis, Pleuritic Pain, Shortness of breath at rest, Shortness of breath upon exertion, Sputum production Gastrointestinal: Reports: Diarrhea, Nausea. Denies: Abdominal Pain, Constipation, Hematemesis, Hematochezia, Vomiting Genitourinary: Denies: Dysuria, Frequency, Incontinence Gynecological: Denies: Breast symptoms Musculoskeletal: Denies: Joint Pain, Joint Tenderness Skin: Denies: Rash, Wounds Neurological: Denies: Numbness, Tingling, Focal weakness Psychiatric: Denies: Anxiety, Depression, Homicidal Ideations, Suicidal Ideations Hematologic/ Lymphatic: Denies: Easy Bruising, Easy Bleeding VTE Information - Inpt Only VTE Present on Admission: No VTE Pharm Prophylaxis ordered?: Yes Patient Problems: Active and Suspected Problems Abscess (Acute) Cellulitis (Acute) - Physical Exam General: Alert, Oriented x3, Cooperative, No apparent distress HEENT: Atraumatic, PERRLA, EOMI, Normocephalic Oral: Moist Mucosa Neck: Supple, No JVD, Negative Carotid Bruits Lungs: Clear to auscultation, Normal air movement Cardiovascular: Regular rate, Regular Rhythm, Normal S1, Normal S2, No murmurs Abdomen: Bowel Sounds Present, Soft, Non Tender, Non-Distended, No Hepato-splenomegaly Extremities: No edema, - - See skin exam Skin: - - Multiple erythematosus papular macular lesions all over the skin, no confluent erythema Areas on the inner thigh, lateral aspect of the thighs with raised lesions, about 3-5cm in diameter, slightly tender, no pustular points, suggestive of abscesses. Musculoskeletal: No Tenderness to Palpation of Joints or Extremities Lymphatic: No Cervical, Supraclavicular, or Inguinal Adenopathy Neurological: Cranial nerves II-XII grossly intact, Neuro grossly intact Psych/Mental Status: Normal Affect, Appropriate Vital Signs Temp Pulse Resp BP Pulse Ox 97.4 F L 89 18 124/75 H 99 05/26/18 13:57 05/26/18 13:57 05/26/18 13:57 05/26/18 13:57 05/26/18 13:57 Oxygen Delivery Method Room Air Assessment/Plan All Active Problems Abscess (Acute) Cellulitis (Acute) Opioid withdrawal (Acute) 32 year old F with past medical history of substance abuse, anxiety disorder, nicotine dependence comes in with complaints of nausea/vomiting, muscle cramps, nasal congestion, restless leg, withdrawing from use of heroin. She is here for medical stabilization under the [facility]. 1. Acute opiate withdrawal, use of heroin >3g daily, would manage patient under the [facility] protocol with buprenorphine. We will get urine tox as well as urine test. 2. Multiple skin lesions/abscesses, minimal signs of cellulitis, will put patient on Bactrim and doxycycline twice daily for 7 days to cover MRSA and strep organisms. 3. Anxiety disorder, patient will benefit from outpatient treatment with psychotherapy as well as with SSRIs 4. DVT prophylaxis with early ambulation Code Visit Inpatient E&M: 12597 Init Hosp L2
[2018-05-26 14:04] VITALS: BMI 29.1
[2018-05-26 14:17] VITALS: BP 124/75; PULSE 89; RESP 18; TEMP 36.3
[2018-05-26 14:23] LABS: Absolute Lymphocyte Count 2.11 X10^3/ul (0.83-4.51); Absolute Neutrophil Count 5.5 X10^3/uL (2.0-7.7); Basophil# 0.01 X10^3/uL; Basophil% 0.1 % (0-1); Eosinophil# 0.09 X10^3/uL; Eosinophils% 1.1 % (0-5); Hematocrit 36.8 % (37-47); Hemoglobin 12.3 g/dl (12.0-15.0); Lymphocyte # 2.11 X10^3/ul (4.0); Mean Corp Hgb Conc 33.4 g/gl (32-36); Mean Corpuscular Hgb 29.4 pg (27.0-32.0); Mean Platelet Vol. 9.6 fl (6.2-12.0); Monocyte# 0.44 X10^3/uL; Monocyte% 5.4 % (0-10); Neutrophil # 5.45 X10^3/uL (2.7-7.7); Neutrophil % 67.4 % (47-70); Platelet Count 206 K/mm3 (150-450); RBC Distribution Width CV 13.3 % (11.6-14.6); RBC Distribution Width SD 42.6 fl (35.1-43.9); Red Blood Count 4.18 M/mm3 (4.2-5.4); White Blood Count 8.1 K/mm3 (4.4-11.0)
[2018-05-26 14:25] LABS: POSITIVE COUNT NO; POSITIVE DIFFERENTIAL NO; POSITIVE MORPHOLOGY NO
[2018-05-26 14:35] LABS: Amphetamine Urine VISTA POSITIVE (<1000 ng/mL); Barbiturate Urine VISTA NEGATIVE (< 200 ng/mL); Benzodiazepine Urine VISTA NEGATIVE (< 200 ng/mL); Cocaine Urine VISTA NEGATIVE (< 300 ng/mL); Ecstacy Urine VISTA NEGATIVE (< 500 ng/mL); Methadone Urine VISTA NEGATIVE (< 300 ng/mL); PCP Urine VISTA NEGATIVE (< 25 ng/mL); THC Urine VISTA NEGATIVE (< 50 ng/mL); Vista UDS pH Range 6
[2018-05-26 14:48] LABS: ALB/GLOB Ratio 0.7 RATIO (0.9-2.4); AST(SGOT) 24 U/L (15-37); Alanine Aminotransfer ALT/SGPT 42 U/L (13-56); Albumin, Serum 3.3 g/dL (3.2-5.0); Alkaline Phosphatase 67 U/L (45-117); Anion Gap 6 (5-15); BUN 6 mg/dL (7-18); BUN/Creat Ratio 8.2 RATIO (10-20); Calcium,Total 8.7 mg/dL (8.5-10.1); Chloride 108 mmol/L (98-107); Creatinine, Serum 0.73 mg/dL (0.55-1.02); EST Glomerular Filtration Rate 96 mL/min (>60); Est Glom Filt Rate - Afr Amer 117 mL/min (>60); Estimated Creatinine Clearance 93.77 ml/min; Globulin 4.8 g/dL (2.2-4.2); Glucose 87 mg/dL (74-106); Potassium 3.7 mmol/L (3.5-5.1); Protein, Total 8.1 g/dL (6.4-8.2); Sodium Level 140 mmol/L (136-145)
[2018-05-26] MEDS: Pramipexole Di-HCl 0.25 MG Tablet PO (14:49)
[2018-05-26] MEDS: Buprenorphine HCl 2 MG TAB.SUBL SL ×2 (14:49→21:42)
[2018-05-26] MEDS: cloNIDine HCl 0.1 MG Tablet PO ×2 (14:49→18:11)
[2018-05-26] MEDS: Ondansetron ODT 4 MG Tablet PO (14:49)
[2018-05-26 16:32] LABS: Internal QC Validated? YES +Cl - CLEAR BKGD
[2018-05-26 16:33] LABS: Pregnancy, Urine Negative Negative
[2018-05-26] MEDS: Nicotine Polacrilex 2 MG GUM PO (16:41)
[2018-05-26 18:02] VITALS: BP 107/64; PULSE 77; RESP 14; TEMP 36.8
[2018-05-26] MEDS: Doxycycline 100 MG CAPSULE PO (18:04)
[2018-05-26] MEDS: Smz/Tmp Ds Tablet 1 TABLET PO (18:04)
[2018-05-26] MEDS: Methocarbamol 750 MG Tablet PO (18:11)
[2018-05-26] MEDS: Dicyclomine 10 MG Capsule 20 MG PO (18:11)
[2018-05-26] MEDS: hydrOXYzine PAM 25 MG Capsule 50 MG PO (18:11)
[2018-05-26 20:25] VITALS: BP 112/68; PULSE 74; RESP 16; TEMP 36.7; O2SAT 99
[2018-05-27] VITALS (7 sets, daily range): BP systolic 97–114; BP diastolic 50–80; PULSE 63–79; RESP 14–16; TEMP 36.4–36.6; O2SAT 97
[2018-05-27] MEDS: Buprenorphine HCl 2 MG TAB.SUBL SL ×3 (05:54→22:37)
[2018-05-27] MEDS: Dicyclomine 10 MG Capsule 20 MG PO (05:54)
[2018-05-27] MEDS: Doxycycline 100 MG CAPSULE PO (09:58)
[2018-05-27] MEDS: Smz/Tmp Ds Tablet 1 TABLET PO (09:58)
[2018-05-27] MEDS: Folic Acid 1 MG Tablet PO (09:58)
[2018-05-27] MEDS: Thiamine Hydrochloride 100 MG Tablet PO (09:58)
[2018-05-27] MEDS: Multivitamins,Therapeutic Tablet 1 TABLET PO (09:58)
[2018-05-27] MEDS: hydrOXYzine PAM 25 MG Capsule 50 MG PO ×2 (10:05→16:16)
[2018-05-27] MEDS: cloNIDine HCl 0.1 MG Tablet PO ×2 (10:05→22:37)
[2018-05-27] MEDS: Methocarbamol 750 MG Tablet PO ×2 (10:05→17:57)
[2018-05-27] MEDS: Fluconazole 100 MG Tablet 200 MG PO (13:38)
--- NOTE | 2018-05-27 15:27 | CHAPLAIN ---
Type of Pastoral Visit _x__ Initial Visit ___ Follow-up Visit ___ On-call Visit ___ General Patient Visit ___ Spiritual Assessment ___ Family Conference ___ Bereavement ___ Rapid Response ___ Code Blue ___ Other (describe below) Pastoral Care Referral From _x__ Patient ___ Family ___ Nurse ___ Physician ___ Pull Tab Dealer ___ Surgical Instrument Maker ___ Other (describe below) Sacrament/Intervention _x__ Active listening ___ Anointing ___ Synagogue ___ Bereavement ___ Communion ___ Patty exploration ___ _x__ Life review _x__ Prayer ___ Reconciliation ___ Sacrament of Sick ___ Supportive presence ___ Wedding ___ Other (describe below) Pastoral Comments patient remembered from previous admission in 2016; 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
[2018-05-27] MEDS: Pramipexole Di-HCl 0.25 MG Tablet PO (16:16)
--- NOTE | 2018-05-27 18:55 | PN_ITS ---
Patient Problems: Active and Suspected Problems Abscess (Acute) Cellulitis (Acute) Subjective: Patient was seen and examined today, she does not complain of tremor or anxiety today. I reviewed her medications, I stopped her antibiotics because I do not feel the patient currently has an active skin infection-there are some areas t hat appear to be chemical cellulitis of the patient's skin from injecting but I do not believe these areas are significant and signify an active cellulitis. - Physical Exam General: Alert, Oriented x3, Cooperative, No apparent distress HEENT: Atraumatic, PERRLA, EOMI, Normocephalic Neck: Supple, No Nuchal Rigidity, Trachea Midline, Thyroid Normal Size and Texture Lungs: Clear to auscultation, Normal air movement, No rhonchi, No wheeze, No rales Cardiovascular: Regular rate, Regular Rhythm, Normal S1, Normal S2, No murmurs, No Ectopic Activity Abdomen: Bowel Sounds Present, Soft, Non Tender, Non-Distended Extremities: No clubbing, No cyanosis, No edema, Capillary Refill Less than 3 Seconds Skin: No breakdown, - - There are scattered raised skin areas on the patient's arm and left leg, these are small and only slightly raised and appear to be deep in nature, they are not warm or fluctuant Neurological: Cranial nerves II-XII grossly intact, Neuro grossly intact, Sensory exam intact to light touch and pain, Coordination normal Psych/Mental Status: Normal Affect, Appropriate, Alert and oriented to time, place, person, mood and affect Vital Signs Temp Pulse Resp BP Pulse Ox 97.5 F L 68 14 98/50 L 97 05/27/18 18:00 05/27/18 18:00 05/27/18 18:00 05/27/18 18:00 05/27/18 02:05 Oxygen Delivery Method Room Air Weight: 77.02 kg Body Mass Index (BMI) 29.1 Intake and Output for Last 24 Hours 05/25/18 05/26/18 05/27/18 23:59 23:59 23:59 Intake Total 200 / 200 1949 Balance 200 / 200 1949 Medical Necessity - Tobacco Use Smoking Status: Current every day smoker Tobacco Use: Non-smoker Assessment/Plan All Active Problems Abscess (Acute) Cellulitis (Acute) Opioid withdrawal (Acute) #1 acute blood opioids withdrawal-continue present medications #2 opiate addiction #3 chemical cellulitis of the skin-again I do not believe this needs to be treated with oral antibiotics #4 anxiety Code Visit Inpatient E&M: 10425 Subs Hosp L2
[2018-05-28 05:53] VITALS: BP 102/57; PULSE 64; RESP 14; TEMP 36.7
[2018-05-28] MEDS: Buprenorphine HCl 2 MG TAB.SUBL SL ×2 (05:55→18:02)
[2018-05-28 09:00] VITALS: BP 115/62; PULSE 80; RESP 18; TEMP 36.6; O2SAT 99
[2018-05-28] MEDS: Nicotine Polacrilex 2 MG GUM PO (09:03)
[2018-05-28] MEDS: Multivitamins,Therapeutic Tablet 1 TABLET PO (09:03)
[2018-05-28] MEDS: Methocarbamol 750 MG Tablet PO (09:09)
[2018-05-28] MEDS: cloNIDine HCl 0.1 MG Tablet PO ×2 (09:09→14:49)
[2018-05-28] MEDS: Dicyclomine 10 MG Capsule 20 MG PO (09:09)
[2018-05-28 10:00] VITALS: BP 110/60; PULSE 80; RESP 16; TEMP 36.7
[2018-05-28 14:37] VITALS: BP 104/58; PULSE 84; RESP 16; TEMP 36.8
[2018-05-28] MEDS: Ondansetron ODT 4 MG Tablet PO (14:49)
--- NOTE | 2018-05-28 17:29 | PCM.PROGNOTE ---
Subjective: Patient seen and examined today, she does not complain of any tremor or anxiety at this time. - Physical Exam General: Alert, Oriented x3, Cooperative HEENT: Atraumatic, PERRLA, EOMI, Normocephalic Oral: Moist Mucosa Neck: Supple, Trachea Midline, Thyroid Normal Size and Texture Lungs: Clear to auscultation, Normal air movement, No rhonchi, No wheeze, No rales Cardiovascular: Regular rate, Regular Rhythm, Normal S1, Normal S2, No murmurs, No Ectopic Activity Abdomen: Bowel Sounds Present, Soft, Non Tender, Non-Distended, No hernias noted Extremities: No clubbing, No cyanosis, No edema, Capillary Refill Less than 3 Seconds Skin: No breakdown Neurological: Cranial nerves II-XII grossly intact, Neuro grossly intact, Sensory exam intact to light touch and pain, Coordination normal Psych/Mental Status: Normal Affect, Appropriate, Alert and oriented to time, place, person, mood and affect Vital Signs Temp Pulse Resp BP Pulse Ox 98.2 F 84 16 104/58 L 99 05/28/18 14:37 05/28/18 14:37 05/28/18 14:37 05/28/18 14:37 05/28/18 09:00 Oxygen Delivery Method Room Air Weight: 77.02 kg Body Mass Index (BMI) 29.1 Intake and Output for Last 24 Hours 05/26/18 05/27/18 05/28/18 23:59 23:59 23:59 Intake Total 200 / 200 1950 / 1950 1310 / 1310 Balance 200 / 200 1950 / 1950 1310 / 1310 Medical Necessity - Tobacco Use Smoking Status: Current every day smoker Tobacco Use: Non-smoker Assessment/Plan All Active Problems Abscess (Acute) Cellulitis (Acute) Opioid withdrawal (Acute) #1 acute blood opioids withdrawal-continue present medications, patient's symptoms are well controlled #2 opiate addiction #3 chemical cellulitis of the skin-again I do not believe this needs to be treated with oral antibiotics #4 anxiety Code Visit Inpatient E&M: 37722 Subs Hosp L2
[2018-05-28 17:55] VITALS: BP 94/49; PULSE 73; RESP 16; TEMP 36.9
[2018-05-28] MEDS: hydrOXYzine PAM 25 MG Capsule 50 MG PO (18:14)
[2018-05-28 21:36] VITALS: BP 90/53; PULSE 74; RESP 16; TEMP 36.6
[2018-05-29 05:29] VITALS: BP 103/55; PULSE 72; RESP 14; TEMP 36.7
[2018-05-29] MEDS: Buprenorphine HCl 2 MG TAB.SUBL SL (05:32)
[2018-05-29] MEDS: Nicotine Polacrilex 2 MG GUM PO (06:34)
--- NOTE | 2018-05-29 07:32 | DCINST_ITS ---
- Discharge Diagnoses Current Active Problems: Current Active and Chronic Problems Abscess (Acute) Cellulitis (Acute) You will use the following diet at home:: No restrictions Your food should be the consistency of: Regular Your liquids should be the consistency of: Regular/Thin Discharge Activity: Return to Normal Activity Weight Bearing Status: Full weight bearing Allergies/Adverse Reactions: Allergies No Known Allergies Allergy (Verified 01/19/17 13:50) Medications to take at Discharge NK 05/26/18 Primary Care Physician: Care Physician,No Primary [Primary Care Provider] - Test Results: Test results from this visit will be discussed in further detail at your follow- up appointment, if applicable.
[2018-05-29 08:37] VITALS: BP 158/70; PULSE 88; RESP 18; TEMP 36.8; O2SAT 98
--- NOTE | 2018-05-30 08:46 | PCM.DC.SUM ---
Discharge Date and Diagnosis Date of Admission: 05/26/18 Date of Discharge: 05/29/18 - Primary Discharge Diagnosis #1 acute blood opioids withdrawal #2 opiate addiction #3 chemical cellulitis of the skin #4 anxiety - Secondary Discharge Diagnosis Chronic Problems Marijuana abuse (Chronic) Tobacco dependence (Chronic) Cocaine abuse (Chronic) Opioid abuse (Chronic) Hospital Course and Treatment Operations: None Procedures: None Summary of Care Provided: The patient is a 32 year old F who was admitted into the medical stabilization program at [facility] due to injectable heroin addiction. Patient was undergoing active withdrawal on admission. Patient was admitted to [facility] using the medical stabilization program order set, initially the admitting physician felt that the patient had cellulitis and she was treated with antibiotics, on my evaluation, I felt that the patient just had chemical cellulitis from injection sites and this did not need to be treated with antibiotics. Patient did well during her hospitalization, symptoms were well controlled on medications. Physical exam: On examination she appeared in good health and spirits. Vital signs as documented. Skin warm and dry and without overt rashes. Neck without JVD. Lungs clear. Heart exam notable for regular rhythm, normal sounds and absence of murmurs, rubs or gallops. Abdomen unremarkable and without evidence of organomegaly, masses, or abdominal aortic enlargement. Extremities nonedematous. Neuro: Cranial nerves II through XII are grossly intact, no focal motor deficits were noted. Psych: Patient was alert and oriented x3, she did not appear anxious or depressed. On 05/29/18, patient was seen and examined as noted above, she was discharged to home in stable condition. - Physical Exam Vital Signs Temp Pulse Resp BP Pulse Ox 98.3 F 88 18 158/70 H 98 05/29/18 08:37 05/29/18 08:37 05/29/18 08:37 05/29/18 08:37 05/29/18 08:37 Oxygen Delivery Method Room Air Weight: 77.02 kg Body Mass Index (BMI) 29.1 Intake and Output for Last 24 Hours 05/28/18 05/29/18 05/30/18 23:59 23:59 23:59 Intake Total 1660 / 1660 700 / 700 Balance 1660 / 1660 700 / 700 Discharge Activity: Return to Normal Activity Weight Bearing Status: Full weight bearing Home Medications: Medications to take at Discharge NK 05/26/18 Primary Care Physician: Care Physician,No Primary [Primary Care Provider] - Disposition: Home Minutes spent on discharge:: 32 Patient Condition:: Stable Medical Necessity - Tobacco Use Smoking Status: Current every day smoker Tobacco Use: Non-smoker Meaningful Use Info Meaningful Use Diagnoses (Choose all that apply): None applicable Code Visit Inpatient E&M: 94323 Disch Hosp
== END 2018-05-29 08:38 | disposition home or self-care (01) | DRG 773 ==
PROVIDERS: Admitting Provider Internal Medicine; Referring Provider Internal Medicine; Visit Provider Internal Medicine
DX: F11.23 Opioid dependence with withdrawal (principal); F41.9 Anxiety disorder, unspecified; L03.90 Cellulitis, unspecified; F17.200 Nicotine dependence, unspecified, uncomplicated
CPT/HCPCS: 80053; 80307; 81025; 85025; 97802; 99218; G0378; G0379